=== PATIENT | female | born 1980 | race Caucasian/White ===

== ENCOUNTER 2016-08-26 12:39 | Emergency (ER) | payer OTHER, MEDICAID ==
[2016-08-26] MEDS ORDERED: TDAP ADULT 0.5 ML INJ (BOOSTRIX) IM ONE (14:18)
--- NOTE | 2016-08-26 14:18 | EDPHY ---
H & P Time Seen by Provider: 08/26/16 14:17 HPI/ROS: HPI: 36-year-old female presents to emergency department with chief concern left foot injury. Reports a laceration to the plantar surface of the left distal medial foot over the base of the 1st metacarpal. Occurred at 1:00 p.m. when she was standing on a step stool, tripped, and landed on a broken flower pot. Last tetanus 2007. Denies other injury at time of incident. Did not strike her head. Has no new neck or back pain. Denies left hip, left knee, left leg pain, weakness, numbness, or tingling. ROS:10 point review of systems is negative other than as stated in HPI Smoking Status: Never smoked Physical Exam: Vital signs stable, reviewed by me General: Awake, alert, calm, cooperative. No acute distress. Head: Normalocephalic. Atraumatic. EENT: PERRLA. EOMI. Neck: Supple, nontender. No midline tenderness, full ROM. Respiratory: Breathing unlabored. CV: Chest nontender, atraumatic. Distal pulses 2+. Brisk cap refill all extremities. GI: Deferred Neuro: Alert. Oriented x 3. Sensation intact all extremities. Skin: Skin warm, dry, 2 cm flap laceration located plantar surface over the 1st metatarsal that is well approximated and not bleeding. Extremities: No discomfort to palpation of the left hip, knee, leg, ankle. Full ROM. Achilles intact without tenderness. Negative Maddox test. No discomfort noted to the lateral, medial, or posterior malleolus. Negative calcaneal squeeze test. Negative midfoot torsion. No tenderness base of the 5th metatarsal. No syndesmosis. No pain to the proximal tibia or fibula. Toes without discomfort and with full ROM. Constitutional: Initial Vital Signs Temperature (C) 36.6 C 08/26/16 12:41 Heart Rate 88 08/26/16 12:41 Respiratory Rate 16 08/26/16 12:41 Blood Pressure 131/89 H 08/26/16 12:41 O2 Sat (%) 96 08/26/16 12:41 O2 Delivery Mode Room Air Allergies/Adverse Reactions: morphine [Morphine] Allergy (Verified 01/28/12 17:18) Hives Home Medications: Medication Instructions Recorded Amphet Asp and D/Amphet [Adderall 10 mg PO DAILY PRN 07/17/12 20 mg (RX)] Amphet Asp and D/Amphet [Adderall 20 mg PO DAILY 07/17/12 20 mg (RX)] Multivitamins [Multivitamin (OTC)] 1 each PO DAILY 07/17/12 Pharmacy Completed 07/17/12 07/17/12 clonazePAM [klonoPIN (RX)] 1 mg PO HS PRN 07/17/12 Medical Decision Making ED Course/Re-evaluation: Boostrix given. I suggested that we open the laceration to perform vigorous irrigation. Patient refused to this. She just wants topical soapy water and bacitracin since the laceration is already well approximated and not bleeding. Differential Diagnosis: Laceration, soft tissue foreign body Departure - Departure Disposition: Home, Routine, Self-Care Clinical Impression: Laceration Condition: Good Instructions: Laceration (ED) Additional Instructions: Plan: You may use 600 mg of ibuprofen every 6 hours for fever, inflammation, or pain. Always take ibuprofen with food and stay well hydrated while taking. Do not exceed the maximum allowable dose in a 24 hour period which is 2400 mg. Daily, wash with warm, soapy water and apply antibiotic ointment Follow up with primary care next week for recheck [place]errals: [place],. [Primary Care Provider] - As per Instructions [facility] [Outside] - As per Instructions
[2016-08-26 14:43] VITALS: BP 127/90; PULSE 91; RESP 18; TEMP 97.5; O2SAT 98
== END 2016-08-26 14:50 | disposition home or self-care (01) ==
DX: S91.312A Laceration without foreign body, left foot, initial encounter (principal); Z23 Encounter for immunization; W45.8XXA Other foreign body or object entering through skin, initial encounter